=== PATIENT | male | born 1995 | race African-American/Black ===

== ENCOUNTER 2017-11-13 22:48 | Emergency (ER) | payer SELFPAY ==
[~2017-11-13] VITALS: Ht 188 cm; Wt 97.5 kg
[2017-11-13 22:57] VITALS: Ht 188 cm; Wt 97.5 kg
[2017-11-14 00:10] VITALS: BP 119/71
== END 2017-11-14 00:10 | disposition home or self-care (01) ==
LOC: ED 22:48
DX: S16.1XXA Strain of muscle, fascia and tendon at neck level, initial encounter (principal); V89.2XXA Person injured in unspecified motor-vehicle accident, traffic, initial encounter; Y93.89 Activity, other specified; Y92.89 Other specified places as the place of occurrence of the external cause; Y99.8 Other external cause status
CPT/HCPCS: J1885